=== PATIENT | female | born 1990 | race Caucasian/White ===

== ENCOUNTER 2022-08-20 04:39 | Emergency (ER) | payer OTHER, SELFPAY ==
[2022-08-20] MEDS ORDERED: MORPHINE 4 MG/ML SYR ONE (05:30)
[2022-08-20] MEDS ORDERED: KETOROLAC 30 MG/ML INJ ONE (05:31)
[2022-08-20] MEDS ORDERED: ONDANSETRON 4 MG/2 ML VIAL ONE (05:31)
[2022-08-20] MEDS ORDERED: NA CHLORIDE 0.9% 1,000 ML ONE (05:31)
[2022-08-20 05:36] LABS: Urine Blood 2+ (Negative); Urine Glucose Negative (Negative); Urine Protein 1+ (Negative); Urine Specific Gravity 1.025 (1.005-1.030); Urine pH 6.5 (5.0-7.0)
[2022-08-20 05:57] LABS: Specific Gravity > 1.030 (1.005-1.030); Urine Bacteria None Seen /HPF (<20); Urine Bilirubin NEGATIVE (Negative); Urine Blood 2+ (Negative); Urine Clarity Turbid (Clear); Urine Color Yellow (Yellow); Urine Glucose NEGATIVE (Negative); Urine Mucus Slight /HPF (None Seen); Urine Protein 1+ (Negative); Urine RBC >50 /HPF (None Seen); Urine Urobilinogen 1+ (Normal); Urine pH 6.5 (5.0-7.0)
[2022-08-20 06:18] LABS: Absolute Lymphocytes (CBC) 2.4 K/uL (0.7-4.9); MCV 91.8 fL (80-100); MPV 9.7 fL (7.6-11.3); RBC Red Blood Cell Count 4.25 M/uL (3.86-4.86)
[2022-08-20 06:37] LABS: Albumin 3.8 g/dL (3.4-5.0); Bilirubin Total 0.4 mg/dL (0.2-1.0); Potassium 3.6 mmol/L (3.5-5.1); Protein, Total 7.1 g/dL (6.4-8.2)
[2022-08-20 06:51] LABS: Urine Specific Gravity/Preg 1.025 (1.005-1.030)
--- NOTE | 2022-08-20 07:27 | ER ---
Nurse's Notes [facility] Name: Shellie Robles Age: 32 yrs Sex: Female : 1990 Arrival Date: 08/20/2022 Time: 04:42 Bed 2 Private MD: Diagnosis: Other specified noninfective gastroenteritis and colitis;Vomiting, unspecified;Noncardiac chest pain, lower abdominal pain, acute pelvic pain in female, nausea with vomiting Presentation: 08/20 04:56 Chief complaint: Patient states: she is having abdominal pain and chest pain since bb yesterday and is unable to hold anything down. Coronavirus screen: At this time, the client does not indicate any symptoms associated with coronavirus-19. Ebola Screen: No symptoms or risks identified at this time. Initial Sepsis Screen: Does the patient meet any 2 criteria? No. Patient's initial sepsis screen is negative. Does the patient have a suspected source of infection? No. Patient's initial sepsis screen is negative. Risk Assessment: Do you want to hurt yourself or someone else? Patient reports no desire to harm self or others. Onset of symptoms was August 19, 2022. 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 - Social history:: Smoking status: Patient denies any tobacco usage or history of. - Family history:: not pertinent. Screenin:16 [facility] ED Fall Risk Assessment (Adult) Score/Fall Risk Level 0 - 2 = Low Risk. Abuse as6 screen: Denies threats or abuse. Denies injuries from another. Nutritional screening: No deficits noted. Tuberculosis screening: No symptoms or risk factors identified. Assessment: 05:15 General: Appears ill, Behavior is calm, cooperative, quiet, Reports fatigue for. Pain: as6 Complains of pain in chest and abdomen. Neuro: Level of Consciousness is awake, alert, obeys commands, Oriented to person, place, time, situation. Cardiovascular: Reports chest pain. Respiratory: Respiratory effort is even, unlabored, Denies shortness of breath. GI: Reports lower abdominal pain, upper abdominal pain, intolerance of fluids, intolerance of food, nausea, vomiting. 06:03 General: "It now feels like I'm having rib pain" . as6 Vital Signs: 04:56 BP 108 / 77; Pulse 65; Resp 16 S; Temp 97.6(O); Pulse Ox 99% on R/A; Weight 70.31 kg bb (R); Height 5 ft. 1 in. (R); Pain 8/10; 06:00 BP 105 / 73; Pulse 62; Resp 16 S; Pulse Ox 98% on R/A; as6 04:56 Body Mass Index 29.29 (70.31 kg, 154.94 cm) bb 04:56 Pain Scale: Adult bb ED Course: 04:42 Patient arrived in ED. ja2 04:58 Triage completed. bb 04:58 Arm band placed on Patient placed in an exam room, on a stretcher, on pulse oximetry. bb 04:59 Joby Harris, RN is Primary Nurse. as6 05:13 Dev Cadet MD is Attending Physician. sp4 05:16 Placed in gown. Bed in low position. Call light in reach. Side rails up X2. Pulse ox as6 on. NIBP on. Warm blanket given. 05:40 Inserted saline lock: 20 gauge in right antecubital area, using aseptic technique. as6 Blood collected. 06:34 CT Abd/Pelvis - IV Contrast Only In Process Unspecified. EDMS 07:23 Primary Nurse role handed off by Joby Harris, KRISTA bp 07:23 Dhaval Chou, KRISTA is Primary Nurse. bp Administered Medications: 05:45 Drug: NS 0.9% IV 1000 ml Route: IV; Rate: 1 bolus; Site: right antecubital; as6 05:45 Drug: Ondansetron IVP 4 mg Route: IVP; Site: right antecubital; as6 05:45 Drug: Ketorolac IVP 30 mg Route: IVP; Site: right antecubital; as6 05:45 Drug: morphine IVP or IV 4 mg Route: IVP; Infused Over: 4 mins; Site: right antecubital;as6 Medication: 05:16 VIS not applicable for this client. as6 Outcome: 07:26 Discharge ordered by sp4 Signatures: Dispatcher [employer] Sonia Kruger, RN RN Dhaval Rogers RN RN bp Alexander, Jessica ja2 Slawson, Ashby, RN RN as6 Dev Cadet, MD MUNOZ sp4
--- NOTE | 2022-08-20 07:27 | EDPHYS ---
Physician Documentation [facility] Name: Shellie Robles Age: 32 yrs Sex: Female : 1990 Arrival Date: 08/20/2022 Time: 04:42 Bed 2 Private MD: ED Physician Dev Cadet HPI: 08/20 05:13 This 32 yrs old Female presents to ER via Ambulatory with complaints of Chest sp4 Pain, Abdominal Pain. 07:16 32-year-old female presents with the complaint of 3 days of abdominal pain situated in sp4 the lower abdomen, 3 episodes of vomiting, pain radiation into the chest, feeling unwell, pain radiation down the right lower leg. Patient states she is under significant stress at home, last menstrual period 08/02/2022.. 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 - Social history:: Smoking status: Patient denies any tobacco usage or history of. - Family history:: not pertinent. ROS: 07:16 Constitutional: Negative for fever, chills, and weight loss, overall feeling unwell and sp4 dizzy Eyes: Negative for injury, pain, redness, and discharge, ENT: Negative for injury, pain, and discharge, Neck: Negative for injury, pain, and swelling, Cardiovascular: Negative for , palpitations, and edema, positive for abdominal pain with radiation into the chest Respiratory: Negative for cough, wheezing, and pleuritic chest pain, positive for shortness of breath Abdomen/GI: Negative for diarrhea, and constipation, positive for abdominal pain nausea and vomiting Back: Negative for injury and pain, : Negative for injury, bleeding, discharge, and swelling, MS/Extremity: Negative for injury and deformity, Skin: Negative for injury, rash, and discoloration, Neuro: Negative for headache, weakness, numbness, tingling, and seizure, Psych: Negative for depression, anxiety, suicide ideation, homicidal ideation, and hallucinations, Allergy/Immunology: Negative for hives, rash, and allergies, Endocrine: Negative for neck swelling, polydipsia, polyuria, polyphagia, and marked weight changes, Hematologic/Lymphatic: Negative for swollen nodes, abnormal bleeding, and unusual bruising. Exam: 07:16 Constitutional: This is a well developed, well nourished patient who is awake, alert, sp4 appears anxious and emotionally upset Head/Face: Normocephalic, atraumatic. Eyes: Pupils equal round and reactive to light, extra-ocular motions intact. Lids and lashes normal. Conjunctiva and sclera are non-icteric and not injected. Cornea within normal limits. Periorbital areas with no swelling, redness, or edema. ENT: Nares patent. No nasal discharge, no septal abnormalities noted. Tympanic membranes are normal and external auditory canals are clear. Oropharynx with no redness, swelling, or masses, exudates, or evidence of obstruction, uvula midline. Mucous membranes moist. Neck: Trachea midline, no thyromegaly or masses palpated, and no cervical lymphadenopathy. Supple, full range of motion without nuchal rigidity, or vertebral point tenderness. No Meningismus. Chest/axilla: Normal chest wall appearance and motion. Nontender with no deformity. No lesions are appreciated. Cardiovascular: Regular rate and rhythm with a normal S1 and S2. No gallops, murmurs, or rubs. Normal PMI, no JVD. No pulse deficits. Respiratory: Lungs have equal breath sounds bilaterally, clear to auscultation and percussion. No rales, rhonchi or wheezes noted. No increased work of breathing, no retractions or nasal flaring. Abdomen/GI: Soft, with normal bowel sounds. No distension or tympany. No guarding or rebound. No evidence of tenderness throughout. Mild bilateral lower abdominal tenderness with negative rebound Back: No spinal tenderness. No costovertebral tenderness. Full range of motion. Skin: Warm, dry with normal turgor. Normal color with no rashes, no lesions, and no evidence of cellulitis. MS/ Extremity: Pulses equal, no cyanosis. Neurovascular intact. Full, normal range of motion. Neuro: Awake and alert, GCS 15, oriented to person, place, time, and situation. Cranial nerves II-XII grossly intact. Motor strength 5/5 in all extremities. Sensory grossly intact. Cerebellar exam normal. Normal gait. Psych: Awake, alert, with orientation to person, place and time. Upset mood, emotional upset, anxious appearing 07:16 ECG was reviewed by the Attending Physician. EKG time 0 5:12 AM. Sinus rhythm at the sp4 rate of 60, no ST elevation or depression, no ectopy, normal EKG Vital Signs: 04:56 BP 108 / 77; Pulse 65; Resp 16 S; Temp 97.6(O); Pulse Ox 99% on R/A; Weight 70.31 kg bb (R); Height 5 ft. 1 in. (R); Pain 8/10; 06:00 BP 105 / 73; Pulse 62; Resp 16 S; Pulse Ox 98% on R/A; as6 04:56 Body Mass Index 29.29 (70.31 kg, 154.94 cm) bb 04:56 Pain Scale: Adult bb MDM: 06:10 Patient medically screened. sp4 07:16 Differential diagnosis: acute pericarditis, anxiety, chest wall pain, cholecystitis, sp4 Cholelithiasis costochondritis, esophagitis, pancreatitis, peptic ulcer disease, pericarditis, pleurisy, pneumonia. HEART Score: History: Slightly Suspicious (0), ECG: Normal (0), Age: < or = 45 years (0), Risk Factors: No Risk Factors Known (0), Troponin: < or = 1 x Normal Limit (0), Total Score = 0. Data reviewed: vital signs, nurses notes, lab test result(s), amylase and lipase, CBC, electrolytes, hepatic panel, urinalysis, UPT: EKG, radiologic studies, CT scan. 07:16 ED course: Laboratory work-up is unremarkable test is negative, CT abdomen sp4 pelvis revealed no acute intra-abdominal or intrapelvic pathology, trace fluid in the right lower quadrant, no evidence for acute appendicitis, stable fat-containing ventral umbilical hernia. ED course: This time patient has no signs of acute emergency and is stable for discharge home with as needed medications for pain and nausea, possible diagnosis acute gastroenteritis associated with vomiting also acute abdominal pain associated with emotional upset. 08/20 05:22 Order name: Urine Test (obtain specimen); Complete Time: 05:38 sp4 08/20 05:21 Order name: IV Saline Lock; Complete Time: 05:57 sp4 08/20 05:21 Order name: Labs collected and sent; Complete Time: 05:57 sp4 08/20 05:21 Order name: CT Abd/Pelvis - IV Contrast Only sp4 08/20 05:21 Order name: CBC with Diff; Complete Time: 07:07 sp4 08/20 05:21 Order name: CMP; Complete Time: 07:07 sp4 08/20 05:22 Order name: Urinalysis W/Microscopic; Complete Time: 07:07 sp4 08/20 05:21 Order name: Lipase; Complete Time: 07:07 sp4 08/20 06:10 Order name: Urine --Ancillary (enter results); Complete Time: 07:07 ah1 08/20 05:36 Order name: Urine Dipstick-Ancillary; Complete Time: 07:07 EDMS 08/20 06:54 Order name: CREATININE WHOLE BLOOD; Complete Time: 07:07 EDMS 08/20 07:02 Order name: EKG Electrocardiogram EDMS EC:16 Rate is 60 beats/min. Rhythm is regular. QRS [place] is Normal. VA interval is normal. QRS sp4 interval is normal. No ST changes noted. Clinical impression: No evidence of ischemia. Interpreted by me. Administered Medications: 05:45 Drug: NS 0.9% IV 1000 ml Route: IV; Rate: 1 bolus; Site: right antecubital; as6 05:45 Drug: Ondansetron IVP 4 mg Route: IVP; Site: right antecubital; as6 05:45 Drug: Ketorolac IVP 30 mg Route: IVP; Site: right antecubital; as6 05:45 Drug: morphine IVP or IV 4 mg Route: IVP; Infused Over: 4 mins; Site: right antecubital;as6 Disposition Summary: 08/20/22 07:26 Discharge Ordered Location: Home sp4 Problem: new sp4 Symptoms: have improved sp4 Condition: Stable sp4 Diagnosis - Other specified noninfective gastroenteritis and colitis sp4 - Vomiting, unspecified sp4 - Noncardiac chest pain, lower abdominal pain, acute pelvic pain in female, nausea sp4 with vomiting Followup: sp4 - With: Private Physician - When: 7 - 10 days - Reason: Re-evaluation by your physician Forms: - Medication Reconciliation Form sp4 - Thank You Letter sp4 - Antibiotic Education sp4 - Prescription Opioid Use sp4 Signatures: Dispatcher [employer] Sonia Kruger, RN RN bb Joby Harris RN RN as6 Dev Cadet MD MD sp4
[2022-08-20] MEDS ORDERED: DICYCLOMINE HCL 10 MG CAP ONE (07:38)
[2022-08-20] MEDS ORDERED: PROMETHAZINE 25 MG TABLET ONE (07:38)
[2022-08-20 12:02] VITALS: TEMP 97.6
[2022-08-20 12:04] VITALS: BP 91/44; O2SAT 99
--- NOTE | 2022-08-20 13:19 | EKG ---
Test Date: 2022-08-20 Test Time: 05:12:40 Intensive Care Ambulance Paramedic: MEASUREMENT RESULTS: Intervals: Rate: 60 OK: 124 QRSD: 86 QT: 408 QTc: 408 [place]: P: 39 OK: 124 QRS: 63 T: -29 INTERPRETIVE STATEMENTS: Normal sinus rhythm ST & T wave abnormality, consider inferior ischemia Abnormal ECG Compared to ECG 01/30/2010 18:02:30 Possible ischemia now present Sinus arrhythmia no longer present ST (T wave) deviation still present Electronically Signed On 08-20-22 13:19:09 CDT by Lalit Gage
--- NOTE | 2022-08-20 16:48 | RAD REPORT ---
EXAM DESCRIPTION: CT - Abdomen Pelvis W Contrast - 08/20/2022 6:58 am CLINICAL HISTORY: 32 years Female LOWER ABD PAIN TECHNIQUE: Axial CT imaging of the abdomen and pelvis was performed following the administration of intravenous contrast.. Oral contrast was not administered. Sagittal and coronal reconstructed image s were then performed. The CT study is performed according to ALARA (as low as reasonably achievabl e) or ALARA/IMAGE GENTLY, with automatic adjustment of mA and/or kV according to patient size. Performed on: 08/20/2022 at 6:29 AM. COMPARISON: CT abdomen and pelvis with IV contrast performed on 03/19/2022 FINDINGS: Lung bases: The lung bases are clear. Liver: The liver is normal in size and configuration. No focal hepatic abnormalities are identified. Liver attenuation is within normal limits. The hepatic and portal veins are patent. Spleen: The spleen is normal in size, configuration and attenuation. Gallbladder and bile duct: The gallbladder is well distended and unremarkable. There is no biliary ductal dilatation. Pancreas: The pancreas is grossly normal in size and configuration. Adrenal Glands: The adrenal glands are normal in size and configuration. Kidneys: The kidneys are normal in size and configuration. There is no evidence of hydronephrosis. Th ere is no evidence of nephrolithiasis. No definite solid or cystic renal mass lesions are identified. Stomach: The stomach is grossly normal. There is no definite hiatal hernia. Bowel: The bowel gas pattern is non specific and non obstructive. Appendix: The appendix is not clearly identified. There is no definite CT evidence to suggest acute a ppendicitis. Free air: There is no evidence of free air. Free fluid: There may be trace free fluid in the right lower quadrant. Vasculature: The aorta is normal in caliber and contour. The inferior vena cava is grossly unremarkab le. Lymphadenopathy: No pathologic lymphadenopathy is identified. Bladder: The bladder is incompletely distended on this examination. Reproductive: The uterus is grossly within normal limits. Bones: No acute osseous abnormalities are identified. Soft tissues: No acute soft tissue abnormalities are identified. There is a small stable fat containi ng ventral umbilical hernia. IMPRESSION: 1. No evidence of acute intra-abdominal or intrapelvic pathology. 2. There may be trace free fluid in the right lower quadrant. 3. There is no definite CT evidence to suggest acute appendicitis. 4. Stable small fat containing ventral umbilical hernia. Electronically signed by: Megan Kaplan DO 08/20/2022 6:51 AM CDT Due to temporary technical issues with the PACS/Fluency reporting system, reports are being signed by the in house radiologists without review as a courtesy to insure prompt reporting. The interpreting radiologist is fully responsible for the content of the report.
== END 2022-08-20 07:48 | disposition home or self-care (01) ==
LOC: ER 04:39
DX: R07.89 Other chest pain (principal); K52.89 Other specified noninfective gastroenteritis and colitis; R11.2 Nausea with vomiting, unspecified; R10.30 Lower abdominal pain, unspecified; R10.2 Pelvic and perineal pain
CPT/HCPCS: 36415; 74177; 80053; 81001; 81003; 81025; 82565; 83690; 85025; 93005; J2405; J7030; Q0169; Q9967